=== PATIENT | female | born 1965 | race Caucasian/White ===

== ENCOUNTER 2016-10-20 15:17 | Inpatient (IN) | payer MEDICAID ==
[~2016-10-20] VITALS: Ht 149.9 cm; Wt 64.4 kg
[2016-10-20] MEDS ORDERED: SODIUM CHLORIDE 0.9% 1,000 ML IV ONE (15:35)
[2016-10-20] MEDS ORDERED: MORPHINE SULFATE 4 MG/ML, 1ML ONE ×2 (15:45→18:11)
[2016-10-20] MEDS ORDERED: ONDANSETRON 2MG/ML, 2ML ONE (15:45)
[2016-10-20] MEDS ORDERED: TRAM50TA2 PO (15:55)
[2016-10-20] MEDS ORDERED: SODIUM CHLORIDE 0.9% 1,000ML IVBOLUS ONE (16:00)
[2016-10-20] MEDS ORDERED: ONDANSETRON 2MG/ML, 2ML IVPush ONE (16:00)
[2016-10-20] MEDS: MORPHINE SULFATE 4 MG/ML, 1ML IVPush PRN ×2 (16:10→18:13)
[2016-10-20 16:11] LABS: BLOOD UREA NITROGEN 12 mg/dL (7-18)
[2016-10-20 16:14] LABS: ASPARTATE AMINO TRANSFERASE 40 U/L (15-37)
[2016-10-20 17:43] LABS: HCG UR OBC PASS
[2016-10-20] MEDS ORDERED: OMNIPAQUE 350 MG/ML, 100ML BOTTLE ONE (18:09)
[2016-10-20] MEDS ORDERED: GOLYTELY 4,000ML ORAL.SOL PO ONE (20:30)
[2016-10-20 22:13] VITALS: BP 110/74
[2016-10-21] MEDS ORDERED: MORPHINE SULFATE 4 MG/ML, 1ML IVPush PRN (05:00)
[2016-10-21 06:56] VITALS: BP 97/64
[2016-10-21 09:18] VITALS: BP 109/61
[2016-10-21 13:58] VITALS: BP 92/64
[2016-10-21] MEDS ORDERED: PROPOFOL 10 MG/ML, 20ML ONE (15:13)
[2016-10-21 18:51] VITALS: BP 129/81
[2016-10-21] MEDS ORDERED: MOVIPREP POWDER 1 PREP KIT PO SCH (21:00)
[2016-10-22 00:10] VITALS: BP 106/62
[2016-10-22 05:22] LABS: BLOOD UREA NITROGEN 13 mg/dL (7-18)
[2016-10-22 07:45] VITALS: BP 126/73
== END 2016-10-22 10:09 | disposition home or self-care (01) | DRG 379 ==
LOC: ED 16:31 → EDIP 19:07 → 3NE 21:51
PROVIDERS: ADMIT Internal Medicine; ATTEND Internal Medicine
PROC: 0DJD8ZZ Inspection of Lower Intestinal Tract, Via Natural or Artificial Opening Endoscopic (ICD-10-PCS; principal; 2016-10-21 13:00)
DX: K92.1 Melena (principal); R73.9 Hyperglycemia, unspecified; F17.210 Nicotine dependence, cigarettes, uncomplicated; Z83.3 Family history of diabetes mellitus; Z86.010 Personal history of colon polyps; Z87.11 Personal history of peptic ulcer disease; Z90.49 Acquired absence of other specified parts of digestive tract; Z80.9 Family history of malignant neoplasm, unspecified; Z88.6 Allergy status to analgesic agent
CPT/HCPCS: 36415; 74020; 74177; 80048; 80053; 81001; 81003; 81025; 83605; 83690; 85025; 85610; 86850; 86900; 86923; 93005; 96361; 96374; 96375; J2405; J2704; Q9967; J7030

== ENCOUNTER 2017-09-01 05:40 | Inpatient (IN) | payer MEDICAID, OTHER ==
[~2017-09-01] VITALS: Ht 149.9 cm; Wt 63.1 kg
[~2017-09-01 05:40] MED LIST: TRAM50TA2 PO
[2017-09-01] MEDS ORDERED: SODIUM CHLORIDE 0.9% 1,000 ML IV ONE (05:56)
[2017-09-01] MEDS ORDERED: SODIUM CHLORIDE FLUSH 10ML SYR IVF ONE (06:00)
[2017-09-01] MEDS ORDERED: MAALOX/HYOSCYAMINE/LIDOCAINE 45 ML BTL ONE (06:00)
[2017-09-01] MEDS ORDERED: MAALOX/HYOSCYAMINE/LIDOCAINE 45 ML BTL PO ONE (06:00)
[2017-09-01 06:27] LABS: BASOPHILS % (AUTO) 0 % (0-1); EOSINOPHILS # (AUTO) 0.01 x10^3/uL (0-0.4); EOSINOPHILS % (AUTO) 0 % (1-7); LYMPHOCYTES # (AUTO) 1.36 x10^3/uL (1-3.4); LYMPHOCYTES % (AUTO) 10 % (22-44); MD NO; MEAN CORPUSCULAR HEMOGLOBIN 29.8 pg (27.0-34.8); MEAN CORPUSCULAR HGB CONC 34.1 g/dL (32.4-35.8); MEAN CORPUSCULAR VOLUME 87.5 fL (80-100); MONOCYTES # (AUTO) 0.64 x10^3/uL (0.2-0.8); MONOCYTES % (AUTO) 5 % (2-9); NEUTROPHILS # (AUTO) 11.26 x10^3/uL (1.8-6.8); NEUTROPHILS % (AUTO) 85 % (42-75); PLATELET COUNT 346 x10^3/uL (130-400); RED BLOOD COUNT 5.79 x10^6/uL (3.82-5.3); RED CELL DISTRIBUTION WIDTH 12.6 % (9.6-15.2)
[2017-09-01 06:40] LABS: ALANINE AMINOTRANSFERASE 101 U/L (12-78); ANION GAP 13 mmol/L (5-15); CALCIUM 9.5 mg/dL (8.5-10.1); CHLORIDE 102 mmol/L (98-107); CREATININE 0.92 mg/dL (0.55-1.02)
[2017-09-01 06:42] LABS: ALKALINE PHOSPHATASE 141 U/L (45-117); BILIRUBIN,TOTAL 0.7 mg/dL (0.2-1.0); TOTAL PROTEIN 8.3 g/dL (6.4-8.2)
[2017-09-01] MEDS ORDERED: CALC200T3 PO (07:07)
[2017-09-01] MEDS ORDERED: KERATIN PO (07:07)
[2017-09-01] MEDS ORDERED: OMNIPAQUE 350 MG/ML, 100ML BOTTLE ONE (07:41)
[2017-09-01] MEDS ORDERED: SODIUM CHLORIDE 0.9%, 500ML IVBOLUS ONE (09:00)
[2017-09-01] MEDS ORDERED: morphine SULFATE 10 MG/ML, 1ML IVPush PRN (09:30)
[2017-09-01] MEDS ORDERED: ONDANSETRON 2MG/ML, 2ML IVPush PRN (09:30)
[2017-09-01] MEDS ORDERED: LABETALOL 5MG/ML, 20ML IVPush PRN (09:30)
[2017-09-01 10:07] VITALS: BP 105/73
[2017-09-01] MEDS: NS + 20MEQ KCL 1,000 ML IV SCH ×2 (11:22→20:04)
[2017-09-01 13:50] VITALS: BP 120/79
[2017-09-01] MEDS: MORPHINE SULFATE 4 MG/ML, 1ML IVPush PRN ×2 (14:30→20:03)
[2017-09-01 19:12] VITALS: BP 114/72
[2017-09-02 01:45] VITALS: BP 116/68
[2017-09-02] MEDS: MORPHINE SULFATE 4 MG/ML, 1ML IVPush PRN (03:24)
[2017-09-02 05:44] LABS: BASOPHILS # (AUTO) 0.02 x10^3/uL (0-0.1); BASOPHILS % (AUTO) 0 % (0-1); EOSINOPHILS # (AUTO) 0.15 x10^3/uL (0-0.4); EOSINOPHILS % (AUTO) 2 % (1-7); LYMPHOCYTES # (AUTO) 2.25 x10^3/uL (1-3.4); LYMPHOCYTES % (AUTO) 35 % (22-44); MD NO; MEAN CORPUSCULAR HEMOGLOBIN 30.1 pg (27.0-34.8); MEAN CORPUSCULAR HGB CONC 34.3 g/dL (32.4-35.8); MEAN PLATELET VOLUME 8.1 fL (7.4-10.4); MONOCYTES # (AUTO) 0.46 x10^3/uL (0.2-0.8); MONOCYTES % (AUTO) 7 % (2-9); NEUTROPHILS # (AUTO) 3.54 x10^3/uL (1.8-6.8); NEUTROPHILS % (AUTO) 55 % (42-75); PLATELET COUNT 274 x10^3/uL (130-400); RED BLOOD COUNT 4.82 x10^6/uL (3.82-5.3); RED CELL DISTRIBUTION WIDTH 12.4 % (9.6-15.2)
[2017-09-02 05:52] LABS: ALANINE AMINOTRANSFERASE 70 U/L (12-78); ANION GAP 7 mmol/L (5-15); CALCIUM 7.8 mg/dL (8.5-10.1); CHLORIDE 107 mmol/L (98-107)
[2017-09-02 05:54] LABS: ALKALINE PHOSPHATASE 117 U/L (45-117); BILIRUBIN,TOTAL 0.8 mg/dL (0.2-1.0); TOTAL PROTEIN 6.3 g/dL (6.4-8.2)
[2017-09-02 06:35] VITALS: BP 102/65
[2017-09-02] MEDS: NS + 20MEQ KCL 1,000 ML IV SCH (07:55)
[2017-09-02 12:32] VITALS: BP 107/67
== END 2017-09-02 14:07 | disposition left against medical advice (07) | DRG 389 ==
LOC: ED 08:40 → EDIP 08:41 → ED 08:52 → 3NE 09:39
PROVIDERS: ADMIT Hospitalist; ATTEND Hospitalist
PROC: 0D9670Z Drainage of Stomach with Drainage Device, Via Natural or Artificial Opening (ICD-10-PCS; principal; 2017-09-01)
DX: K56.600 Partial intestinal obstruction, unspecified as to cause (principal); R65.10 Systemic inflammatory response syndrome (SIRS) of non-infectious origin without acute organ dysfunction; D75.1 Secondary polycythemia; D72.829 Elevated white blood cell count, unspecified; E86.9 Volume depletion, unspecified; R73.9 Hyperglycemia, unspecified; R74.0 Nonspecific elevation of levels of transaminase and lactic acid dehydrogenase [LDH]; F17.210 Nicotine dependence, cigarettes, uncomplicated; Z66 Do not resuscitate; Z53.21 Procedure and treatment not carried out due to patient leaving prior to being seen by health care provider; Z82.49 Family history of ischemic heart disease and other diseases of the circulatory system; Z83.3 Family history of diabetes mellitus; Z90.49 Acquired absence of other specified parts of digestive tract; Z72.89 Other problems related to lifestyle
CPT/HCPCS: 36415; 71045; 74018; 74021; 74177; 80053; 83605; 83690; 85025; 93005; 96360; 99285; J3480; Q9967; J7030; J7040

== ENCOUNTER → 2017-11-03 | Outpatient (CLI) | payer OTHER ==
[~2017-11-03] MED LIST changes: +CALC200T3 PO; +KERATIN PO
== END | disposition home or self-care (01) ==
LOC: RAD 16:00
PROVIDERS: ATTEND Internal Medicine Gastroenterology
DX: K59.00 Constipation, unspecified (principal); K56.609 Unspecified intestinal obstruction, unspecified as to partial versus complete obstruction; K21.9 Gastro-esophageal reflux disease without esophagitis; R11.2 Nausea with vomiting, unspecified; I63.9 Cerebral infarction, unspecified; Z90.49 Acquired absence of other specified parts of digestive tract
CPT/HCPCS: 74018